=== PATIENT | male | born 1960 | race American Indian/Alaskan Native ===

== ENCOUNTER 2016-07-02 09:04 | Emergency (ER) | payer OTHER ==
[~2016-07-02 09:04] MED LIST: ADRENALIN ONE
--- NOTE | 2016-07-02 10:38 | Emergency Department Report ---
ED CPR HPI - General Chief Complaint: Cardiac Arrest/CPR Stated Complaint: CARDIAC ARREST Time Seen by Provider: 07/02/16 09:39 Source: patient, EMS Mode of arrival: Stretcher Limitations: Other - History of Present Illness Initial Comments: 55-year-old male presents to the emergency department via EMS in cardiac arrest. EMS states that the initial call was for nausea, vomiting, and dizziness. Reportedly the patient has been having the symptoms for several days. EMS states on their arrival the patient was unresponsive but had a pulse. Approximately 15 minutes prior to arrival emergency department, the patient lost his pulse, and CPR was initiated by EMS. Patient was intubated by EMS in the field and he was administered 3 mg of epinephrine and a single dose of calcium chloride prior to arrival. EMS reports they did a 12-lead EKG prior to the patient was in his pulse that was suspicious for ST elevation [place]. Further history is unable to be obtained from the patient due to his clinical condition. -: minute(s) (15) Bystander CPR Performed: Yes Initial Findings in the Field: unresponsive, good pulses, sinus rhythm ROSC in the Field: No Associated Symptoms: dizziness/weakness Treatments Prior to Arrival: intubation, epinephrine mgs # (3), calcium - Related Data Previous Rx's Medication Instructions Recorded Last Taken Type Cephalexin [Keflex] 500 mg PO Q6H #28 capsule 06/30/13 07/03/13 03:00 Rx HYDROcodone/APAP 10-325 [[place] 1 each PO Q6HR PRN #20 tablet 06/30/13 07/03/13 03:00 Rx 10-325 mg TAB] glipiZIDE [Glucotrol] 5 mg PO QDAY #60 tablet 07/03/13 Unknown Rx Allergies Allergy/AdvReac Type Severity Reaction Status Date / Time No Known Allergies Allergy Verified 07/03/13 17:03 ED Review of Systems ROS: Stated complaint: CARDIAC ARREST Other details as noted in HPI Comment: Unobtainable due to pts medical conditions ED Past Medical Hx - Past Medical History Previous Medical History?: Yes Hx Diabetes: Yes - Surgical History Past Surgical History?: Yes Additional Surgical History: I and D left hand - Family History Family history: no significant - Social History Smoking Status: Unknown if ever smoked - Medications Home Medications: Home Medications Medication Instructions Recorded Confirmed Last Taken Type Cephalexin [Keflex] 500 mg PO Q6H #28 capsule 06/30/13 07/03/13 07/03/13 03:00 Rx HYDROcodone/APAP 10-325 [[place] 1 each PO Q6HR PRN #20 tablet 06/30/13 07/03/13 07/03/13 03:00 Rx 10-325 mg TAB] glipiZIDE [Glucotrol] 5 mg PO QDAY #60 tablet 07/03/13 Unknown Rx ED Physical Exam - General Limitations: Other General appearance: obtunded - Head Head exam: Present: atraumatic, normocephalic - Eye Eye exam: Present: normal appearance. Absent: PERRL (pupils 4 mm equal and nonreactive) - ENT ENT exam: Present: mucous membranes moist, other (ETT in place) - Respiratory Respiratory exam: Present: normal lung sounds bilaterally (with assisted ventilations) - Cardiovascular Cardiovascular Exam: Present: other (no palpable pulse) - GI/Abdominal GI/Abdominal exam: Present: soft, distended - Extremities Exam Extremities exam: Present: normal inspection, full ROM - Back Exam Back exam: Present: normal inspection, full ROM - Neurological Exam Neurological exam: Present: other (GCS 3T (E1, V1T, M1)) - Skin Skin exam: Present: warm, dry, cyanosis (facial), other (changes consistent with vitiligo noted to the face, all 4 extremities, and neck) ED Course - Reevaluation(s) Reevaluation #1: 07/02/16 10:45 CPR was continued in the emergency department under my direction. Patient received multiple rounds of epinephrine. Due to the patient's distended abdomen , cyanosis, and report some respiratory difficulty bagging the patient, direct laryngoscopy was performed by me. This showed that the endotracheal tube was actually in the esophagus and not the trachea. This tube was removed and the patient was reintubated by myself, see associated procedure no. ACLS protocol was continued. Patient continued to have PEA or asystole on the rn cardiac rehab. No cardiac motion was noted on bedside ultrasound. Time of recorded at 0932. Family has been notified. - Intubation Laryngoscope: Gavin Size: 4 ET Tube Size: 8 Tube Secured Depth (cm): 24 Tube Secured Location: lips Tube Placement Confirmation: visualized tube passing t, equal breath sounds bilat, no breath sounds over epi, confirmation by capnometr Patient Tolerated Procedure: well Intubation Complications: none ED Medical Decision Making - EKG Data -: EKG Interpreted by Me (from EMS) EKG shows normal: sinus rhythm, axis, intervals, QRS complexes Rate: bradycardia - EKG Data When compared to previous EKG there are: previous EKG unavailable Interpretation: acute [place] (ST elevation in inferior and lateral leads) - Differential Diagnosis STEMI, arrhythmia, cardiac arrest Critical care attestation.: If time is entered above; I have spent that time in minutes in the direct care of this critically ill patient, excluding procedure time. ED Disposition Clinical Impression: Cardiac arrest STEMI (ST elevation myocardial infarction) Qualifiers: Involved coronary artery: right coronary artery Qualified Code(s): I21.11 - ST elevation (STEMI) myocardial infarction involving right coronary artery Disposition: Is pt being admited?: No Condition: Stable Referrals: PRIMARY CARE, [Primary Care Provider] - 3-5 Days Time of Disposition: 09:32
== END 2016-07-02 13:30 ==
LOC: ED 09:04
DX: I21.11 ST elevation (STEMI) myocardial infarction involving right coronary artery (principal); I46.9 Cardiac arrest, cause unspecified; E11.9 Type 2 diabetes mellitus without complications
CPT/HCPCS: 31500; 92950; 99285; J0171